=== PATIENT | female | born 1985 | race African-American/Black ===

== ENCOUNTER 2022-08-21 13:00 | Emergency (ER) | payer MEDICAID ==
[~2022-08-21] VITALS: Ht 162.6 cm; Wt 73.0 kg
[~2022-08-21 13:00] MED LIST: TYLENOL
[2022-08-21 13:10] VITALS: BP 132/84
[2022-08-21] MEDS ORDERED: ACETAMINOPHEN 325MG TABLET PO ONE (14:00)
[2022-08-21] MEDS ORDERED: IBUPROFEN 400MG TABLET PO ONE (14:00)
[2022-08-21] MEDS ORDERED: NAPR-681 MT (16:39)
[2022-08-21] MEDS ORDERED: CYCL5TAB MT ×3 (16:39→16:49)
== END 2022-08-21 17:19 | disposition home or self-care (01) ==
LOC: ER 13:00
DX: S80.02XA Contusion of left knee, initial encounter (principal); S80.01XA Contusion of right knee, initial encounter; S40.012A Contusion of left shoulder, initial encounter; S40.022A Contusion of left upper arm, initial encounter; E05.90 Thyrotoxicosis, unspecified without thyrotoxic crisis or storm; V43.52XA Car driver injured in collision with other type car in traffic accident, initial encounter; Y93.89 Activity, other specified; Y92.410 Unspecified street and highway as the place of occurrence of the external cause
CPT/HCPCS: 71046; 73030; 73090; 73560; 99284